=== PATIENT | female | born 1940 | race Caucasian/White ===

== ENCOUNTER 2021-06-14 11:54 | Emergency (ER) | payer OTHER ==
[2021-06-14 12:21] VITALS: PULSE 85; BMI 19.1
[2021-06-14 17:17] VITALS: BP 130/74; TEMP 98
== END 2021-06-14 17:25 | disposition home or self-care (01) ==
LOC: FER 11:54
DX: R32 Unspecified urinary incontinence (principal); M54.50 Low back pain, unspecified
CPT/HCPCS: 70450-TC; 72170-TC-FY; 81003; 87086; 99285-25